=== PATIENT | female | born 1980 | race Caucasian/White ===

== ENCOUNTER 2022-10-20 19:42 | Emergency (ER) | payer SELFPAY ==
[2022-10-20 19:56] VITALS: BP 176/105; PULSE 103; RESP 18; TEMP 36.5; O2SAT 95; BMI 36.0
--- NOTE | 2022-10-20 19:58 | XR_ITS ---
The [address] [address] Patient Name: HOMERO UREÑA MRN: [id number] date: 1980 Sex: F Assigned Patient Location: ED.MAIN Current Patient Location: ED.MAIN Accession/Order Number: [id number] Exam Date: 10/20/2022 20:02 Report Date: 10/20/2022 20:31 At the request of: IMELDA ALVARES Procedure: XR ankle LT min 3V Exam: Radiographs: XR foot LT min 3V, XR ankle LT min 3V Reason for exam: pain Comparison: None XR/XR ankle LT min 3V IMPRESSION: Ununited ossicle at the base of the left fifth metatarsal could represent an acute avulsion fracture, correlate clinically. Soft tissue swelling throughout the ankle. Remainder of the left foot and ankle are unremarkable. Electronically authenticated by: DAJUAN MARTINEZ Date: 10/20/2022 20:31
--- NOTE | 2022-10-20 19:58 | XR_ITS ---
The [address] [address] Patient Name: HOMERO UREÑA MRN: [id number] date: 1980 Sex: F Assigned Patient Location: ED.MAIN Current Patient Location: ED.MAIN Accession/Order Number: [id number] Exam Date: 10/20/2022 20:02 Report Date: 10/20/2022 20:31 At the request of: IMELDA ALVARES Procedure: XR foot LT min 3V Exam: Radiographs: XR foot LT min 3V, XR ankle LT min 3V Reason for exam: pain Comparison: None XR/XR foot LT min 3V IMPRESSION: Ununited ossicle at the base of the left fifth metatarsal could represent an acute avulsion fracture, correlate clinically. Soft tissue swelling throughout the ankle. Remainder of the left foot and ankle are unremarkable. Electronically authenticated by: DAJUAN MARTINEZ Date: 10/20/2022 20:31
--- NOTE | 2022-10-20 20:20 | PC.NURSE ---
Patient was steping off her trailer when she rolled her left ankle and fell to the ground. denies head injury. Left outside region of ankle is swollen, warm, no signs of brusing. lateral side of left foot swollen as well. patient states she heard a crackiing sound when she fell. no medications given prior. Ice pack on, ankle elevated.
--- NOTE | 2022-10-20 20:42 | ED.LOWEXI1 ---
HPI - Extremity Injury (Lower) General Chief Complaint: Extremity Injury, Lower Stated Complaint: LEFT ANKLE INJURY Time Seen by Provider: 10/20/22 19:58 Source: patient and family Mode of arrival: Wheelchair Limitations: no limitations History of Present Illness HPI Narrative: 42-year-old female presents with left ankle pain after she was wearing crocs while she was working outside and twisted her ankle. Hurts to bear weight. Denies temp or sensation changes Related Data Allergies Allergy/AdvReac Type Severity Reaction Status Date / Time No Known Drug Allergies Allergy Verified 10/20/22 19:56 Review of Systems ROS Status of ROS 10 or more systems reviewed and unremarkable except as noted in history and below PFSH PFSH Social History Smoking status: Never smoker Exam Narrative Exam Narrative: General: A&Ox3, no distress, talking in full an complete sentences skin: warm, dry, intact head: normocephalic, atraumatic eyes: EOMI nose: nares patent neck: supple, trachea midline respiratory: non-labored extremities: FROM x 4, strength +5/5, tender to left lateral malleolus and the base of the fifth metatarsal, no tib-fib tenderness neuro: A&Ox3 psych: appropriate mood and affect, cooperative Constitutional Vital Signs, click to edit/add: Last Vital Signs Temp 97.7 F 10/20/22 19:56 Pulse 103 H 10/20/22 19:56 Resp 18 10/20/22 19:56 BP 176/105 H 10/20/22 19:56 Pulse Ox 95 10/20/22 19:56 O2 Del Method Room Air 10/20/22 19:56 Course Vital Signs Vital signs: Vital Signs Temperature 97.7 F 10/20/22 19:56 Pulse Rate 103 H 10/20/22 19:56 Respiratory Rate 18 10/20/22 19:56 Blood Pressure 176/105 H 10/20/22 19:56 Pulse Oximetry 95 10/20/22 19:56 Oxygen Delivery Method Room Air 10/20/22 19:56 Temperature 97.7 F 10/20/22 19:56 Pulse Rate 103 H 10/20/22 19:56 Respiratory Rate 18 10/20/22 19:56 Blood Pressure 176/105 H 10/20/22 19:56 Pulse Oximetry 95 10/20/22 19:56 Oxygen Delivery Method Room Air 10/20/22 19:56 MDM - Extremity Injury (Lower) MDM Narrative Medical decision making narrative: Final read of x-ray shows a possible avulsion fracture to the base of the left fifth metatarsal. She is very tender in this area and is placed in an OCL per myself and is to follow-up with Ortho. She is medicated with Toradol. She is given crutches and instructed to remain nonweightbearing. Fracture care initiated in ER. Neurovascular intact. afebrile, not tachypneic, not tachycardic, not hypoxic, non toxic appearing and ambulating at baseline and hemodynamically stable to be d/c. answered all questions. pt in agreement with tx. educated when to return to ER. Discharge Plan Discharge Chief Complaint: Extremity Injury, Lower Clinical Impression: Foot fracture, left Qualifiers: Encounter type: initial encounter Fracture type: closed Qualified Code(s): S92.902A - Unspecified fracture of left foot, initial encounter for closed fracture Patient Disposition: Home, Self-Care Time of Disposition Decision: 20:53 Condition: Good Mode of Transportation: Private Vehicle Stand Alone Forms: Portal Instructions Referrals: Physician,Non-Staff, [Primary Care Provider] - 1 week Reuben Luo MD [Physician] - As soon as possible Discharge Date/Time: 10/20/22 21:13
[2022-10-20] MEDS: KETOROLAC TROMETHAMINE 30 MG/ML VIAL 15 MG IM (20:51)
== END 2022-10-20 21:13 | disposition home or self-care (01) ==
PROVIDERS: Emergency Provider Internal Medicine
DX: S92.352A Displaced fracture of fifth metatarsal bone, left foot, initial encounter for closed fracture (principal); X50.1XXA Overexertion from prolonged static or awkward postures, initial encounter
CPT/HCPCS: 29515; 73610; 73630; 96372; 99284